=== PATIENT | female | born 1970 | race Caucasian/White ===

== ENCOUNTER 2020-05-20 07:42 | Outpatient (REF) | payer OTHER, SELFPAY | END 2020-05-20 07:43 | disposition home or self-care (01) | LOC: HO.LAB 07:42 | PROVIDERS: Visit Provider Internal Medicine | DX: Z20.828 Contact with and (suspected) exposure to other viral communicable diseases (principal) | CPT/HCPCS: C9803; U0003 ==

== ENCOUNTER 2020-08-02 12:47 | Emergency (ER) | payer OTHER, SELFPAY ==
[2020-08-02 12:54] VITALS: BP 103/56; BP 104/70; PULSE 72; PULSE 73; RESP 16; TEMP 36.6; O2SAT 96; O2SAT 98; BMI 34.3
--- NOTE | 2020-08-02 13:57 | ED.HA ---
HPI - Headache General Chief Complaint: Headache Stated Complaint: migraine Time Seen by Provider: 08/02/20 13:46 Source: patient Mode of arrival: ambulatory History of Present Illness HPI Narrative: 49-year-old Female with no significant past medical history presenting to the ED complaining of migraine headache since 9:30 a.m. with associated nausea, vomiting, and photophobia. Admits to struggling with headaches x months, denies taking any medications today. Reports improvement in symptoms after Zofran given in the ED. denies headache being maximal at onset. Denies any head trauma/falls, visual changes/loss, numbness, tingling, weakness MD elicited complaint: headache Related Data Previous Rx's Medication Instructions Recorded arxvnjhxxx-tzvoxgoxcdnzy-yesl 1 cap PO Q4-6H PRN #14 cap 08/02/20 [Fioricet] ondansetron HCl [Zofran] 4 mg PO Q8H PRN #10 tab 08/02/20 Allergies Allergy/AdvReac Type Severity Reaction Status Date / Time No Known Allergies Allergy Verified 08/02/20 13:55 Review of Systems Review of Systems: Constitutional: No Fever, No Chills Eyes: No Eye Pain, No Vision Changes Cardiovascular: No Chest Pain, No SOB Respiratory: No Cough, No Sputum, No Dyspnea Gastrointestinal: + Nausea, + Vomiting, No Abdominal pain Skin: No Skin Lesions, No rash Neuro: No Weakness, No Numbness, No Paresthesias, No Loss of Consciousness, No Dizziness,+Headache Yes all other systems are reviewed and are negative Eyes: Eyes: Reports photophobia Neurologic: Denies Abnormal speech present [facility] Past Medical History Attestation statement: The following information was validated with the patient. Social History Social History Alcohol intake: never Smoking Status: Never smoker Use of substances other than those prescribed or required for medical reasons: No Advance Directives: Yes Advance Directives Information Provided: No Advance Directives on File: No Physical Exam Vital Signs: Vital Signs: Last Vital Signs Temp 98.4 F 08/02/20 18:20 Pulse 78 08/02/20 18:20 Resp 16 08/02/20 18:55 BP 97/49 L 08/02/20 18:20 Pulse Ox 96 08/02/20 18:20 Body Mass Index 34.3 Const: General: cooperative and healthy appearing Orientation/consciousness: patient oriented x3 Limitations: no limitations HENMT: Head: Yes normal to inspection Ears: hearing grossly normal bilaterally General nose exam: Normal external nose present Face and sinus: Yes normal facial exam Eyes: General: appearance normal, both eyes and all related structures Pupils: Equal, round and reactive pupils present EOM: EOMs intact bilaterally Direct Ophthalmoscopy: photophobia Neck: Neck: Yes normal visual inspection and Yes no meningeal signs Resp: Effort & Inspection: normal respiratory effort Cardio: Rate: regular rate Skin: Rashes: no rashes Wounds: no wounds Neuro: General: patient oriented x3, tone normal, moves all extremities, no meningeal signs, no focal motor deficits and CN's II-XI intact bilaterally Cranial nerves: Yes Equal, round and reactive pupils present Cognition (Neuro): normal cognition Speech: No Abnormal speech present Gait exam (Neuro): Normal gait present Motor exam (neuro): 5/5 motor strength present throughout, Pronator motor function not present and no tremor noted Coordination: fwfrfq-os-ghcu test normal, espj-xx-rxul test normal and Romberg test negative Extrem: General: Yes normal to inspection and Yes no pedal edema Course Course Course Narrative: -[id number]--patient recently received medications due to nursing delay, will re-evaluate shortly -patient reports symptomatic improvement on re-evaluation in feel safe for discharge. Worrisome signs and symptoms and strict return precautions discussed. She verbalized understanding feel safe for discharge home MDM - Headache MDM Narrative Medical decision making narrative: 49-year-old Female with no significant past medical history presenting to the ED complaining of migraine headache since 9:30 a.m. with associated nausea, vomiting, and photophobia. On exam VSS, NAD/well-appearing, no focal neuro deficits. During entire evaluation patient had blanket over face. When I went back into room to ask additional questions patient was playing on cell phone. Likely migraine headache. Low concern for SAH/ICH, meningitis/encephalitis, or CVT Plan: Symptomatic treatment, re-evaluate Differential Diagnosis Differential diagnosis: Likely migraine, tension headache and headache Medical Records Attestation: I reviewed the patient's medical records. Discharge Plan Discharge Clinical Impression: Migraine Patient Disposition: Home, Self-Care Instructions: Acute Headache (ED) Additional Instructions: Fioricet is a headache medication, take as needed. Zofran as antinausea medication Follow-up with her primary care doctor as well as Neurology as needed If her symptoms persist or worsen her headache becomes constant, have persistent nausea/vomiting, developed a weakness, numbness/tingling, or fever return to the ED immediately Prescriptions: New lovncoeogi-xgayijpeznqfi-swrc [Fioricet] 50-300-40 mg capsule 1 cap PO Q4-6H PRN (Reason: pain) Qty: 14 RF: 0 ondansetron HCl [Zofran] 4 mg tablet 4 mg PO Q8H PRN (Reason: nausea and vomiting) Qty: 10 RF: 0 Referrals: Rupal Coley MD [Primary Care Provider] - 2 days Alannah Wolf MD [Physician] - 5 days Stand Alone Forms: Work/School Release Interventions: ED Discharge Assessment Last Done: 08/02/20 19:09 Discharge Date/Time: 08/02/20 19:11
[2020-08-02 15:36] VITALS: BP 108/36; PULSE 71; RESP 17; TEMP 36.6; O2SAT 95
[2020-08-02] MEDS: Ketorolac Tromethamine 15 MG/ML VIAL IVPUSH (15:43)
[2020-08-02] MEDS: Metoclopramide HCl 10 MG/2 ML VIAL IVPUSH (15:43)
[2020-08-02] MEDS: 0.9 % Sodium Chloride 1,000 ML 999 ML IVCONT (15:50)
[2020-08-02 16:57] VITALS: BP 106/59; PULSE 84; RESP 20; TEMP 36.6; O2SAT 97
[2020-08-02] MEDS: Butalb/Acetamin/Caff 50/325/40 TABLET 1 TAB PO (17:12)
[2020-08-02] MEDS: diphenhydrAMINE HCL 50 MG/ML VIAL 12.5 MG IVPUSH (17:13)
[2020-08-02 18:20] VITALS: BP 97/49; PULSE 78; RESP 17; TEMP 36.9; O2SAT 96
[2020-08-02 18:55] VITALS: RESP 16
== END 2020-08-02 19:11 | disposition home or self-care (01) ==
PROVIDERS: Emergency Provider Emergency Medicine; PCP Internal Medicine
DX: G43.909 Migraine, unspecified, not intractable, without status migrainosus (principal)
CPT/HCPCS: 96361; 96374; 96375; 99284; J1200; J1885; J2765